=== PATIENT | female | born 1945 | race Caucasian/White ===

== ENCOUNTER 2016-07-08 17:12 | Emergency (ER) | payer OTHER, MEDICAID ==
[2016-07-08 17:30] VITALS: BP 120/82; PULSE 87; RESP 20; TEMP 98.1; O2SAT 98
--- NOTE | 2016-07-08 18:12 | EDPHY ---
H & P Stated Complaint: fell impacting r arm and shoulder 1 week ago/having prob with movement Time Seen by Provider: 07/08/16 17:51 HPI/ROS: CHIEF COMPLAINT: Mechanical fall 2 weeks ago, right arm weakness 3 days ago improving HISTORY OF PRESENT ILLNESS: The patient has a history of fairly significant cervical stenosis. She has been treated conservatively. She fell approximately 2 weeks ago. Approximately 3 days ago she developed some weakness in her right arm and associated clumsiness. The symptoms have improved over the past several days. She is centrally is asymptomatic at this point time. The patient was being evaluated by a friend who felt that she was weaker in her right arm clinically. She contacted Dr. David Rodney's office who she has seen from Neurosurgery in the past who recommended she come to the ED for MRI evaluation. In the ED, the patient denies bowel or bladder dysfunction. She denies additional complaints. The patient does have a history of hepatitis-C. The patient denies fever or additional traumatic injury. REVIEW OF SYSTEMS: A comprehensive 10 point review of systems is otherwise negative aside from elements mentioned in the history of present illness. Source: Patient Exam Limitations: No limitations - Personal History Current Tetanus/Diphtheria Vaccine: Yes - Medical/Surgical History Hx Asthma: No Hx Chronic Respiratory Disease: No Hx Diabetes: No Hx Cardiac Disease: No Hx Renal Disease: No Hx Cirrhosis: No Hx Alcoholism: No Hx HIV/AIDS: No Hx Splenectomy or Spleen Trauma: No Other PMH: chronic neck pain - Social History Smoking Status: Current every day smoker - Physical Exam Exam: General Appearance: Thin female, pleasant, no acute distress Eyes: Pupils equal and round no pallor or injection ENT, Mouth: Mucous membranes moist Respiratory: There are no retractions, lungs are clear to auscultation Cardiovascular: Regular rate and rhythm Gastrointestinal: Abdomen is soft and nontender, no masses, bowel sounds normal Neurological: Alert and oriented x4, 5/5 strength noted throughout the right upper extremity, sensation intact to light touch, no evidence of a significant motor deficit appreciated Skin: Warm and dry, no rashes Musculoskeletal: Neck is supple nontender Extremities: symmetrical, full range of motion Psychiatric: Patient is oriented X 3, there is no agitation Constitutional: Initial Vital Signs Temperature (C) 36.7 C 07/08/16 17:26 Heart Rate 87 07/08/16 17:26 Respiratory Rate 20 05/01/17 17:26 Blood Pressure 120/82 H 07/08/16 17:26 O2 Sat (%) 98 07/08/16 17:26 O2 Delivery Mode Room Air Allergies/Adverse Reactions: Penicillins Allergy (Mild, Verified 10/23/13 15:13) "eyes turn red" Home Medications: Medication Instructions Recorded Epclusa 400 mg-100 mg Tablet 07/08/16 Valium 07/08/16 methylPREDNISolone [Medrol Dose 1 each PO AD #1 ea 07/08/16 Lopez] Medical Decision Making ED Course/Re-evaluation: I reviewed the results of the patient's prior MRI. 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 The patient does not appear to present with an acute central cord syndrome or evidence of a significant motor deficit. I am certain that her MRI will continue to look abnormal as a did 2014. I did karonbsjohann Valderrama who is on- call for Neurosurgery informing him of my clinical examination. The patient will be discharged home with instructions to return to the ED for significant weakness, bowel or bladder dysfunction, numbness or other concerns. The patient will follow up as an outpatient with Neurosurgery Clinic this week. I will give the patient a Solu-Medrol Dosepak. Departure - Departure Disposition: Home, Routine, Self-Care Clinical Impression: Cervical spinal stenosis Condition: Good Instructions: Cervical Spinal Stenosis (ED) Additional Instructions: 1. Please take steroids as directed. 2. Please return to the ED for markedly worsening weakness, numbness, difficulty with gait or other concerns. 3. Please follow up with Neurosurgery within the next week for a recheck. Referrals: Julia Rodney MD [Medical Doctor] - As per Instructions
== END 2016-07-08 18:25 | disposition home or self-care (01) ==
DX: M48.02 Spinal stenosis, cervical region (principal); F17.200 Nicotine dependence, unspecified, uncomplicated

== ENCOUNTER → 2016-07-12 | Outpatient (CLI) | payer OTHER, MEDICAID | LOC: FIMAGING 15:25 | PROVIDERS: ATTEND Physical Medicine & Rehabilitation Neuromuscular Medicine | DX: M50.31 Other cervical disc degeneration, high cervical region (principal); M50.321 Other cervical disc degeneration at C4-C5 level; M50.322 Other cervical disc degeneration at C5-C6 level; M50.323 Other cervical disc degeneration at C6-C7 level; M12.88 Other specific arthropathies, not elsewhere classified, other specified site; S13.130A Subluxation of C2/C3 cervical vertebrae, initial encounter; S13.160A Subluxation of C5/C6 cervical vertebrae, initial encounter; S13.180A Subluxation of C7/T1 cervical vertebrae, initial encounter ==

== ENCOUNTER → 2016-09-21 | Outpatient (CLI) | payer OTHER, MEDICAID | LOC: FIMAGING 15:08 | PROVIDERS: ATTEND Physical Medicine & Rehabilitation | DX: M50.30 Other cervical disc degeneration, unspecified cervical region (principal); M48.02 Spinal stenosis, cervical region; M99.71 Connective tissue and disc stenosis of intervertebral foramina of cervical region ==

== ENCOUNTER → 2017-01-15 | Outpatient (CLI) | payer OTHER, MEDICAID | LOC: FIMAGING 14:14 | PROVIDERS: ATTEND Orthopaedic Surgery Orthopaedic Surgery of the Spine | DX: Z13.820 Encounter for screening for osteoporosis (principal); M81.0 Age-related osteoporosis without current pathological fracture ==

== ENCOUNTER → 2017-09-11 | Outpatient (CLI) | payer OTHER, MEDICAID | LOC: FIMAGING 16:43 → EDSTATUS 16:45 | PROVIDERS: ATTEND Family Medicine | DX: S13.130A Subluxation of C2/C3 cervical vertebrae, initial encounter (principal); S13.160A Subluxation of C5/C6 cervical vertebrae, initial encounter; S13.180A Subluxation of C7/T1 cervical vertebrae, initial encounter; M50.30 Other cervical disc degeneration, unspecified cervical region; M89.38 Hypertrophy of bone, other site ==

== ENCOUNTER 2018-03-02 17:10 | Emergency (ER) | payer OTHER, MEDICAID ==
--- NOTE | 2018-03-02 17:41 | EDPHY ---
H & P Stated Complaint: [facility] trip, R foot swelling, R shouder pain. Denies LOC/ hitting head Time Seen by Provider: 03/02/18 17:23 HPI/ROS: CHIEF COMPLAINT: Foot pain, shoulder injury post mechanical fall HISTORY OF PRESENT ILLNESS: 72-year-old female lives by herself states that yesterday evening while doing in her home she is wearing flip-flops come her flip-flops caught on the carpet causing her roll her bilateral feet as well as impacted her right shoulder. She has limited range of motion and weight- bearing however notes that this has become progressively improved over the day. She feels comfortable caring for herself. Denies: Head injury, C-spine pain or injury, alcohol or drug use, peripheral paresthesia, weakness, numbness, chest pain or trauma, back pain or trauma, abdominal pain or, trauma straddle or genital injury. PRIMARY CARE PROVIDER: Dr. [facility] REVIEW OF SYSTEMS: 10 systems reviewed and negative with the exception of the elements mentioned in the history of present illness PAST MEDICAL/SURGICAL HISTORY: no anticoagulant use, no relevant medical/ surgical history SOCIAL HISTORY: denies alcohol use at time of incident PHYSICAL EXAM 1) GENERAL: Well-developed, well-nourished, alert and oriented. Appears to be in no acute distress. Answering questions appropriately. 2) HEAD: Normocephalic, atraumatic 3) HEENT: Pupils equal, round, reactive to light bilaterally. Negative Horners. Nasopharynx, oropharynx, clear. No deformity or angulation of nose. No septal hematoma. No rhinorrhea. No oral trauma. Ears bilaterally with normal tympanic membranes. No hemotympanum. No fluid or blood in the external auditory canal. No raccoon eyes. No Guerrero sign. Teeth are normally aligned with no gross malocclusion, TMJ bilaterally nontender, facial bones nontender including the zygomatic arch, maxilla mandible. 4) NECK: No cervical collar is on. Posterior cervical spine is nontender, no stepoff, no effusion. Full range of motion which does not elicit any midline cervical spine pain, no posterior midline tenderness, no step-off. 5) LUNGS: Clear to auscultation bilaterally, no wheezes, no rhonchi, no retractions. No obvious signs of trauma. No chest wall pain. No flaring, no grunting. Moving symmetrically. No crepitus. 6) HEART: Regular rate and rhythm, 7) ABDOMEN: No guarding, no rebound, no focal tenderness, no peritoneal signs, no signs of trauma, no ecchymosis 8) MUSCULOSKELETAL: Right lower extremity: Tender to palpation right medial aspect of knee with no visible signs of trauma. No pain with axial loading. Soft compartments. Soft tissue swelling to the dorsal foot with soft compartments. DP PT pulses present and brisk. Ankle nontender. Femur tibia and fibular nontender. Soft compartments. Normal coloration. Brisk capillary refill distally. Left lower extremity: Tender to palpation dorsal midfoot with mild soft tissue swelling and ecchymosis. DP PT pulses present and brisk with brisk capillary refill less than 2 sec. Proximally nontender. Soft compartments throughout. Right upper extremity: No visible signs of trauma. Reproducible pain to the right posterior shoulder with range of motion. No step-off no deformity no crepitus. Scapula nontender. Brisk pulses distally with brisk capillary refill. Soft compartments throughout Left upper extremity: No visible signs of trauma no tenderness, brisk pulses, brisk cap refill, soft compartments 9) BACK: No midline vertebral tenderness, no fluctuance, no step-off, no obvious trauma, no visual or palpable abnormality. 10) SKIN: No laceration. No abrasion DIFFERENTIAL DIAGNOSIS: In no particular order including but not limited to fracture, sprain, strain, dislocation - Personal History Current Tetanus/Diphtheria Vaccine: Yes - Medical/Surgical History Hx Asthma: No Hx Chronic Respiratory Disease: No Hx Diabetes: No Hx Cardiac Disease: No Hx Renal Disease: No Hx Cirrhosis: No Hx Alcoholism: No Hx HIV/AIDS: No Hx Splenectomy or Spleen Trauma: No Other PMH: chronic neck pain, lamenectomy - Social History Smoking Status: Current every day smoker Constitutional: Initial Vital Signs Temperature (C) 36.7 C 03/02/18 17:19 Heart Rate 81 03/02/18 17:19 Respiratory Rate 16 03/02/18 17:19 Blood Pressure 143/83 H 03/02/18 17:19 O2 Sat (%) 97 03/02/18 17:19 O2 Delivery Mode Room Air Allergies/Adverse Reactions: Penicillins Allergy (Mild, Verified 03/02/18 17:18) "eyes turn red" Home Medications: Medication Instructions Recorded Epclusa 400 mg-100 mg Tablet 07/08/16 Valium 07/08/16 methylPREDNISolone [Medrol Dose 1 each PO AD #1 ea 07/08/16 Lopez] Gabapentin 03/02/18 Medical Decision Making - Diagnostics Imaging Results: Imaging Impressions Foot X-Ray 03/02/18 17:33 Impression: 1. Possible fractured osteophyte at the dorsal base of the first proximal phalanx on the right. Soft tissue swelling is seen in the right foot at the MTP level. 2. Degenerative changes at the first MTP joint bilaterally with hallux valgus deformities. Shoulder X-Ray 03/02/18 17:37 Impression: 1. No acute osseous abnormality. 2. Degenerative changes of the shoulder and acromioclavicular joint. 3. Healed rib fractures on the right. Foot X-Ray 03/02/18 17:54 Impression: 1. Possible fractured osteophyte at the dorsal base of the first proximal phalanx on the right. Soft tissue swelling is seen in the right foot at the MTP level. 2. Degenerative changes at the first MTP joint bilaterally with hallux valgus deformities. 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 Images reviewed myself ED Course/Re-evaluation: 6:11 p.m.: Patient was re-evaluated with serial exams. Reviewed her imaging studies interpreted by staff radiologist. Given bilateral postoperative shoes. She would like to be discharged home. I offered admission however she feels she is able to care for self adequately. She has no history of head injury no evidence of head injury.. I Do not think that CT imaging studies indicated at this time. 6:15 p.m.: Patient like an x-ray of the right knee. Reports pain to the right medial aspect of the knee when she fell. No visible signs of trauma to this area, no effusion, full weight-bearing. Will obtain x-ray. 7:07 p.m.: Re-evaluation, discussed her negative x-ray of the knee. I discussed limitations of of all the x-rays at the patient's obtained, notably informed that non osseous injury is not ruled out. She may necessitate outpatient MRI or more advanced imaging. I do not identify indication for emergent advanced imaging. She feels comfortable being discharged. Once again I offered admission however she feels she is able to care for her self and feels safe at home. Departure - Departure Disposition: Home, Routine, Self-Care Clinical Impression: Right knee sprain Qualifiers: Encounter type: initial encounter Involved ligament of knee: unspecified ligament Qualified Code(s): S83.91XA - Sprain of unspecified site of right knee , initial encounter Right foot sprain Qualifiers: Encounter type: initial encounter Qualified Code(s): S93.601A - Unspecified sprain of right foot, initial encounter Sprain of left foot Qualifiers: Encounter type: initial encounter Qualified Code(s): S93.602A - Unspecified sprain of left foot, initial encounter Sprain of right shoulder Qualifiers: Encounter type: initial encounter Shoulder sprain type: unspecified sprain Qualified Code(s): S43.401A - Unspecified sprain of right shoulder joint, initial encounter Condition: Fair Instructions: Shoulder Sprain (ED), Foot Sprain (ED) Additional Instructions: Return to the ER immediately if you experience discoloration, have worsening pain, numbness, tingling, or any other symptoms that concern you. If you received x-rays in the emergency department today, be advised, that ligamentous , tendon, muscular, and other non-bony injury cannot be fully ruled out. Try to keep your affected extremity elevated above the level of your chest, and keep cold packs on the affected area, for the next 48 hours. Referrals: Isamar Bryson MD [Primary Care Provider] - As per Instructions
[2018-03-02 19:33] VITALS: BP 137/79
== END 2018-03-02 19:32 | disposition home or self-care (01) ==
DX: S83.91XA Sprain of unspecified site of right knee, initial encounter (principal); S93.601A Unspecified sprain of right foot, initial encounter; S93.602A Unspecified sprain of left foot, initial encounter; M11.261 Other chondrocalcinosis, right knee; X50.1XXA Overexertion from prolonged static or awkward postures, initial encounter; Y92.9 Unspecified place or not applicable; Y93.9 Activity, unspecified; Y99.9 Unspecified external cause status
CPT/HCPCS: 73030; 73564; 73630; 99284; L4386

== ENCOUNTER 2018-03-14 16:52 | Emergency (ER) | payer OTHER, MEDICAID ==
--- NOTE | 2018-03-14 17:36 | EDPHY ---
H & P Stated Complaint: dx with R foot fx/L foot sprain 10 days ago, worsening pain R foot Time Seen by Provider: 03/14/18 17:24 HPI/ROS: CHIEF COMPLAINT: Bilateral foot swelling HISTORY OF PRESENT ILLNESS: The patient is a 72-year-old female who is seen here on [facility] after she tripped and fell wearing flip-flops. She had pain to both feet. She had an osteophyte fracture of her 1st metatarsal bone on the right foot. No obvious fracture on the left foot. She states that she has been feeling better in general however today her friend came over and noticed that both of her feet seems swollen. She does have mild bruising as well. Her right foot is more swollen than the left. She was seen at [facility] who sent her here to evaluate the swelling. No weakness or numbness. And wounds . She denies having any cardiac , lung or kidney disease. Severity: Moderate Modifying factors: None REVIEW OF SYSTEMS: Constitutional: denies: chills, fever, recent illness, recent injury EENTM: denies: blurred vision, double vision, nose congestion Respiratory: denies: cough, shortness of breath Cardiac: denies: chest pain, irregular heart rate, lightheadedness, palpitations Gastrointestinal/Abdominal: denies: abdominal pain, diarrhea, nausea, vomiting, blood streaked stools Genitourinary: denies: dysuria, frequency, hematuria, pain Musculoskeletal: See HPI Skin: denies: lesions, rash, jaundice, bruising Neurological: denies: headache, numbness, paresthesia, tingling, dizziness, weakness Hematologic/Lymphatic: denies: blood clots, easy bleeding, easy bruising Immunologic/allergic: denies: HIV/AIDS, transplant 10 systems reviewed and negative except as noted EXAM: GENERAL: Well-appearing, well-nourished and in no acute distress. HEAD: Atraumatic, normocephalic. EYES: Pupils equal round and reactive to light, extraocular movements intact, sclera anicteric, conjunctiva are normal. ENT: TMs normal, nares patent, oropharynx clear without exudates. Moist mucous membranes. NECK: Normal range of motion, supple without lymphadenopathy or JVD. LUNGS: Breath sounds clear to auscultation bilaterally and equal. No wheezes rales or rhonchi. HEART: Regular rate and rhythm without murmurs, rubs or gallops. ABDOMEN: Soft, nontender, normoactive bowel sounds. No guarding, no rebound. No masses appreciated. BACK: No CVA tenderness, no spinal tenderness, step-offs or deformities EXTREMITIES: Bilateral swelling right greater than left, nonpitting, mild bruising to the right 1st toe and to the left 4th and 5th toes. Ambulates without difficulty. Small bruises to her right thigh secondary to cat scratching, no open wounds, no streaking or erythema. No drainage. NEUROLOGICAL: Cranial nerves II through XII grossly intact. Normal speech, normal gait. 5/5 strength, normal movement in all extremities, normal sensation , normal reflexes PSYCH: Normal mood, normal affect. SKIN: Warm, dry, normal turgor, no visible rashes or lesions. Source: Patient Exam Limitations: No limitations - Medical/Surgical History Hx Asthma: No Hx Chronic Respiratory Disease: No Hx Diabetes: No Hx Cardiac Disease: No Hx Renal Disease: No Hx Cirrhosis: No Hx Alcoholism: No Hx HIV/AIDS: No Hx Splenectomy or Spleen Trauma: No Other PMH: chronic neck pain, lamenectomy, hep c - since tx/resolved - Family History Significant Family History: No pertinent family hx - Social History Smoking Status: Current every day smoker Alcohol Use: Sober Drug Use: None Constitutional: Initial Vital Signs Temperature (C) 36.6 C 03/14/18 17:08 Heart Rate 78 03/14/18 17:08 Respiratory Rate 18 03/14/18 17:08 Blood Pressure 124/70 H 03/14/18 17:08 O2 Sat (%) 97 03/14/18 17:08 O2 Delivery Mode Room Air Allergies/Adverse Reactions: Penicillins Allergy (Mild, Verified 03/14/18 17:14) "eyes turn red" danielle Allergy (Verified 03/14/18 17:14) Home Medications: Medication Instructions Recorded Valium 07/08/16 Gabapentin 03/02/18 Medical Decision Making - Diagnostics Imaging Results: Imaging Impressions Extremity Venous Study 03/14/18 17:29 Impression: No deep venous thrombosis bilateral legs. Salazar's cyst left knee. Results called and discussed with Dr. Stevie Rodgers at 03/14/2018 18:20. Foot X-Ray 03/14/18 17:49 Impression: Possible nondisplaced fracture at the proximal metaphysis fourth metatarsal. Contour abnormality at the base of the first metatarsal which could be acute or chronic fracture. Severe degenerative change first metatarsophalangeal joint. Results called and discussed with Stevie Rodgers MD on March 14, 2018 at 1836 hours. Imaging: Discussed imaging studies w/ monitoring coordinator Radiologist ED Course/Re-evaluation: Reviewed the x-rays from the patient's previous visit. The fracture does correlate with site of her pain. I do not suspect any other fractures. She is able to ambulate. Ultrasounds pending. 6:40 p.m. we discussed the x-rays and ultrasounds. She is reassured. She is wearing a postop shoe already and is tolerating this well. I urged her to continue this. We discussed possibly using a Jed boot however I think this would make her more at risk for swelling and DVT and frozen joint. She is also requesting compression stockings for her swelling which we will provide as also Neosporin for a small cat scratch on her right thigh that occurred about 1 week ago. There is no surrounding erythema or streaking. Currently appears to be small petechial bruises. Differential Diagnosis: Partial list of the Differential diagnosis considered include but were not limited to; foot fracture, edema, DVT and although unlikely based on the history and physical exam, I also considered infection, cardiac disease, liver disease, kidney disease. I discussed these differential diagnoses and the plan with the patient as well as the usual and expected course. The patient understands that the diagnosis is provisional and that in medicine we are not always correct and that further workup is often warranted. Usual and customary warnings were given. All of the patient's questions were answered. The patient was instructed to return to the emergency department should the symptoms at all worsen or return, otherwise to followup with the physician as we discussed. Departure - Departure Disposition: Home, Routine, Self-Care Clinical Impression: Foot fracture, right Qualifiers: Encounter type: initial encounter Fracture type: closed Qualified Code(s): S92.901A - Unspecified fracture of right foot, initial encounter for closed fracture Edema Qualifiers: Edema type: unspecified Qualified Code(s): R60.9 - Edema, unspecified Contusion of left foot Qualifiers: Encounter type: subsequent encounter Qualified Code(s): S90.32XD - Contusion of left foot, subsequent encounter Condition: Fair Instructions: Toe Fracture (ED), Leg Edema (ED) Referrals: Isamar Bryson MD [Primary Care Provider] - As per Instructions Faustino Wagner MD [Medical Doctor] - 5-7 days, call for appt.
[2018-03-14 18:57] VITALS: BP 130/78
== END 2018-03-14 19:02 | disposition home or self-care (01) ==
DX: S92.311A Displaced fracture of first metatarsal bone, right foot, initial encounter for closed fracture (principal); S90.32XD Contusion of left foot, subsequent encounter; W01.0XXD Fall on same level from slipping, tripping and stumbling without subsequent striking against object, subsequent encounter; Y92.9 Unspecified place or not applicable; Y93.9 Activity, unspecified; Y99.9 Unspecified external cause status; Z88.0 Allergy status to penicillin

== ENCOUNTER → 2018-05-28 | Outpatient (CLI) | payer OTHER, MEDICAID | LOC: BMCIMAGING 14:59 | PROVIDERS: ATTEND Podiatrist Foot & Ankle Surgery | DX: S92.341D Displaced fracture of fourth metatarsal bone, right foot, subsequent encounter for fracture with routine healing (principal) ==

== ENCOUNTER → 2018-07-08 | Outpatient (CLI) | payer OTHER, MEDICAID | LOC: FIMAGING 15:59 | DX: M50.31 Other cervical disc degeneration, high cervical region (principal); M50.33 Other cervical disc degeneration, cervicothoracic region; M51.34 Other intervertebral disc degeneration, thoracic region; M46.92 Unspecified inflammatory spondylopathy, cervical region; M46.93 Unspecified inflammatory spondylopathy, cervicothoracic region; M46.94 Unspecified inflammatory spondylopathy, thoracic region ==